=== PATIENT | male | born 1960 | race Hispanic/Latino ===

== ENCOUNTER 2024-08-18 16:04 | Inpatient (IN) | payer BC, OTHER ==
--- OUTSIDE RECORDS SUMMARY | 2024-08-18 16:06 | XMS REPORT | Continuity of Care Document ---
Author Name Unknown Address [address] [facility] [place] [address] [facility] thconnect Address [address] [facility] [address] [place] [address] Care Team Providers Care Production Illustrator Name Role Phone Amrik Monaco Attending Clinician Unavailable Payers Payer Name Policy Type Policy Number Effective Date Expirati on Date Source [place] [address] [id number] 2023 00:00:00 [facility] Problems Condition Name Condition Details Condition Category Status Onset Date Resolution Date Last Treatment Date Treating Clinician Comments Source [id number] Obesity, Class II, BMI 35-39.9 Problem [facility] Social History Social Habit Start Date Stop Date Quantity Comments Source History of Tobacco Use [facility] Sex Assigned At [facility] Smoking Status Start Date Stop Date Source Never Smoker [facility] Medications Ordered Medication Name Filled Medication Name Start Date Stop Date Current Medication? Ordering Clinician Indication Dosage Frequency Signature (SIG) Comments Components Source Famotidine 40 MG Famotidine 40 MG No 1{table t_at_be dtime} QD Famotidine 40 MG Metoprolol Succinate ER 25 MG Metoprolol Succinate ER 25 MG No 1{table t} QD Metoprolol Succinate ER 25 MG Metoclopram rashard HCl 10 MG Metoclopram rashard HCl 10 MG No 1{table t_befor e_meals } Metoclopra mide HCl 10 MG Encounters Start Date/Time End Date/Time Encounter Type Admission Type Attending [facility] Facility Care Department Encounter ID Source 2024-01-15 08:10:02 Outpatient Amrik Monaco [facility] [id number] [facility] 2023-12-18 08:00:00 Outpatient Amrik Monaco [facility] [id number] [facility] 2024-05-19 00:00:00 2024-05-19 00:00:00 (TEL) [facility] [id number] [facility]
[2024-08-18 19:17] LABS: Absolute Eosinophils 0.1 K/uL (0-0.5); Absolute Lymphocytes (CBC) 1.1 K/uL (0.7-4.9); Absolute Monocytes 1.4 K/uL (0.1-1.3); Eosinophils % 0.5 % (0-4.4); Hematocrit 52.2 % (39.6-49.0); Hemoglobin 17.1 g/dL (13.6-17.9); Lymphocytes % 7.4 % (15.3-44.8); MCH 30.3 pg (27.0-35.0); MCHC 32.7 g/dL (32.0-36.0); MCV 92.5 fL (80-100); MPV 9.6 fL (7.6-11.3); Monocytes % 8.8 % (3.3-12.3); Neutrophils % 83.3 % (41.7-73.7); Nucleated Red Blood Cells % 0.1 % (0-0); Platelets 286 thou/uL (152-406); RBC Red Blood Cell Count 5.65 M/uL (4.33-5.43); Red Cell Distribution Width 14.1 % (12.1-15.2)
[2024-08-18 19:23] LABS: Specific Gravity > 1.030 (1.005-1.030); Sqamous Epithelial <5 /HPF (None Seen); Urine Bacteria None Seen /HPF (<20); Urine Bilirubin NEGATIVE (Negative); Urine Blood 2+ (Negative); Urine Clarity Clear (Clear); Urine Color Yellow (Yellow); Urine Culture Reflex Order NOT NEEDED; Urine Glucose NEGATIVE (Negative); Urine Ketones NEGATIVE (Negative); Urine Microscopic Reflex YN ORDER UMIC; Urine Mucus Slight /HPF (None Seen); Urine Nitrite NEGATIVE (Negative); Urine Protein 1+ (Negative); Urine RBC 21-50 /HPF (None Seen); Urine Urobilinogen Normal (Normal); Urine WBC <5 /HPF (<5); Urine pH 5.5 (5.0-7.0)
[2024-08-18 19:47] LABS: Albumin 4.1 g/dL (3.4-5.0); Bilirubin Total 0.7 mg/dL (0.2-1.0); Globulin 4.2 g/dL (2.3-3.5); Protein, Total 8.3 g/dL (6.4-8.2); Troponin High Sensitivity 4.6 pg/mL (<58.9)
--- NOTE | 2024-08-18 19:50 | RAD REPORT ---
EXAMINATION: CT ABDOMEN AND PELVIS WITH CONTRAST CLINICAL INDICATION: ABD PAIN TECHNIQUE: CT abdomen and pelvis was performed, after the administration of IV contrast, [facility]. Axial, sagittal and coronal reconstructions were obtained. One or more of the following dose reduction techniques were used: Automated exposure control, adjustment of the mA and k V according to patient size, and iterative reconstruction. Unless otherwise specified, incidental findings do not require dedicated imaging follow-up. COMPARISON: No prior exam. FINDINGS: LOWER CHEST: The visualized lung bases are clear. LIVER: Normal in size and contour. No focal lesion. Gallbladder distention. SPLEEN: Normal size. No focal lesion. PANCREAS: No mass, ductal dilation, or shelli-pancreatic fluid. ADRENALS: Normal; no mass. KIDNEYS: Normal size and contour. No hydronephrosis. GASTROINTESTINAL TRACT: Prominent fluid-filled small bowel loops are present likely representing diff use ileus or developing small bowel obstruction. Mildly prominent lymph nodes noted in the small bowel mesentery towards the right. APPENDIX: Normal. LYMPH NODES: No lymphadenopathy. MUSCULOSKELETAL: No acute or suspicious osseous abnormality. ADDITIONAL FINDINGS: Mild free fluid along the right hepatic edge. Moderate to large fat-containing r ight inguinal hernia. Prostate gland mildly prominent projecting into the bladder base. IMPRESSION: Prominent fluid-filled small bowel loops likely representing diffuse ileus or developing mechanical o bstruction. Mild free fluid in the right upper quadrant. Moderate to large fat-containing right inguinal hernia.
--- NOTE | 2024-08-18 19:58 | EDPHYS ---
Physician Documentation [facility] Name: Mayur Hassan Age: 63 yrs Sex: Male : 1960 Arrival Date: 08/18/2024 Time: 16:04 Bed 28 Private MD: ED Physician Isaac Harrington HPI: 08/18 17:04 This 63 yrs old Male presents to ER via Ambulatory with complaints of sp3 Abdominal Pain. 17:04 63-year-old male with history of hypertension in the past surgical history presents to [facility] the ED referred from urgent care secondary to abdominal pain and possible surgical abdomen. Patient has had diffuse midline abdominal pain extending from the epigastric region inferiorly. Patient's been having symptoms for 2 to 3 days progressively getting worse. He denies any fever, chest pain, shortness of breath, vomiting, diarrhea, back pain, dysuria, trauma, bleeding, or any other signs or symptoms on ROS at this time. Patient does endorse mild nausea.. Historical: - Allergies: 16:53 No Known Allergies; cm10 - Home Meds: 16:53 metoprolol 50mg DAILY [Active]; cm10 - PMHx: 16:53 None; cm10 - PSHx: 16:53 None; cm10 - Immunization history:: Adult Immunizations up to date. - Infectious Disease History:: Denies. - Social history:: Smoking status: Patient denies any tobacco usage or history of. ROS: 17:08 Constitutional: Negative for fever, chills, and weight loss, Eyes: Negative for injury, sp3 pain, redness, and discharge, ENT: Negative for injury, pain, and discharge, Neck: Negative for injury, pain, and swelling, Cardiovascular: Negative for chest pain, palpitations, and edema, Respiratory: Negative for shortness of breath, cough, wheezing, and pleuritic chest pain, Back: Negative for injury and pain, MS/Extremity: Negative for injury and deformity, Skin: Negative for injury, rash, and discoloration, Neuro: Negative for headache, weakness, numbness, tingling, and seizure, Psych: Negative for depression, anxiety, suicide ideation, homicidal ideation, and hallucinations, Allergy/Immunology: Negative for hives, rash, and allergies, Endocrine: Negative for neck swelling, polydipsia, polyuria, polyphagia, and marked weight changes, Hematologic/Lymphatic: Negative for swollen nodes, abnormal bleeding, and unusual bruising, 17:08 All other systems are negative, Exam: 17:08 Constitutional: This is a well developed, well nourished patient who is awake, alert, sp3 and in no acute distress. Head/Face: Normocephalic, atraumatic. Eyes: Pupils equal round and reactive to light, extra-ocular motions intact. Lids and lashes normal. Conjunctiva and sclera are non-icteric and not injected. Cornea within normal limits. Periorbital areas with no swelling, redness, or edema. Neck: Trachea midline, no thyromegaly or masses palpated, and no cervical lymphadenopathy. Supple, full range of motion without nuchal rigidity, or vertebral point tenderness. No Meningismus. Chest/axilla: Normal chest wall appearance and motion. Nontender with no deformity. No lesions are appreciated. Cardiovascular: Regular rate and rhythm with a normal S1 and S2. No gallops, murmurs, or rubs. Normal PMI, no JVD. No pulse deficits. Respiratory: Lungs have equal breath sounds bilaterally, clear to auscultation and percussion. No rales, rhonchi or wheezes noted. No increased work of breathing, no retractions or nasal flaring. Back: No spinal tenderness. No costovertebral tenderness. Full range of motion. Skin: Warm, dry with normal turgor. Normal color with no rashes, no lesions, and no evidence of cellulitis. MS/ Extremity: Pulses equal, no cyanosis. Neurovascular intact. Full, normal range of motion. Neuro: Awake and alert, GCS 15, oriented to person, place, time, and situation. Cranial nerves II-XII grossly intact. Motor strength 5/5 in all extremities. Sensory grossly intact. Cerebellar exam normal. Normal gait. Psych: Awake, alert, with orientation to person, place and time. Behavior, mood, and affect are within normal limits. 17:08 Abdomen/GI: Patient has significant pain to palpation epigastrically extending inferiorly. No rebound or guarding noted., 19:14 ECG was reviewed by the Attending Physician. EKG demonstrates sinus tachycardia at 112 sp3 bpm with normal intervals, normal axis, poor R wave progression nonspecific diffuse ST's ST changes without evidence of acute ischemia. Vital Signs: 16:51 BP 163 / 105; Pulse 119; Resp 19; Temp 97.6; Pulse Ox 97% on R/A; Weight 107.5 kg; cm10 Height 5 ft. 7 in. ; Pain 10/10; 19:07 BP 179 / 97; Pulse 87; Resp 16; Temp 98; Pulse Ox 98% ; go2 21:38 BP 135 / 85; Pulse 78; Resp 20; Temp 97.9; Pulse Ox 98% ; go2 16:51 Body Mass Index 37.12 (107.50 kg, 170.18 cm) cm10 16:51 Pain Scale: Adult cm10 MDM: 16:10 Medical Screening Exam initiated sp3 17:09 Data reviewed: vital signs, nurses notes, lab test result(s), EKG, radiologic studies. sp3 ED course: 63-year-old male with abdominal pain. Differential diagnosis includes biliary colic, cholecystitis, biliary pathology, pancreatitis, gastritis, colitis, UTI/pyelonephritis spectrum, ureterolithiasis/kidney stone spectrum, among others. I am at highly suspicious for aortic pathology however workup will include CT scan of the abdomen pelvis with IV contrast, general labs and UA as well as symptomatic control with morphine and ondansetron IV coupled with IV fluids. Patient is tachycardic. Disposition pending workup and patient course.. 19:56 ED course: Patient on CT demonstrates mechanical obstruction versus ileus, 15,000 white sp3 count, lactate 3.3. We are hydrating with saline and empiric antibiotics with Zosyn. I discussed the case with Dr. Hager general surgery who will see the patient in the morning and repeat x-ray for the morning is been ordered. NG tube if needed. Patient is NPO. Also discussed with Dr. Rinku busby hospitalist who will be performing the admission.. 12 16:58 Order name: CBC with Diff; Complete Time: 19:21 sp3 08/18 16:58 Order name: CMP; Complete Time: 19:51 sp3 08/18 16:58 Order name: Lipase; Complete Time: 19:51 sp3 08/18 16:58 Order name: Urinalysis w/ reflexes; Complete Time: 19:51 sp3 08/18 16:58 Order name: Lactate w/ 2H reflex if indic.; Complete Time: 19:51 sp3 08/18 16:58 Order name: Troponin High Sensitivity; Complete Time: 19:51 3 08/18 19:43 Order name: Ghost Lactate-NO COLLECT Timer EDMS 08/18 20:54 Order name: Blood Culture Adult (2) sb4 08/18 23:48 Order name: Lactate Sepsis 2 HR Follow-up EDMS 08/18 23:49 Order name: T4 Free EDMS 08/18 23:49 Order name: Thyroid Stimulating Hormone EDMS 08/18 23:49 Order name: Urinalysis w/ reflexes EDMS 08/18 23:49 Order name: CBC with Automated Diff EDMS 08/18 23:49 Order name: CBC with Automated Diff EDMS 08/18 23:49 Order name: Comprehensive Metabolic Panel EDMS 08/18 23:49 Order name: Comprehensive Metabolic Panel EDMS 08/19 06:05 Order name: T4 Free EDMS 08/19 06:05 Order name: Thyroid Stimulating Hormone EDMS 08/18 16:58 Order name: CT Abd/Pelvis - IV Contrast Only; Complete Time: 19:51 3 08/18 23:49 Order name: Abdomen 1 View (KUB) EDMS 08/18 23:49 Order name: Abdomen 1 View (KUB) EDMS 08/18 16:58 Order name: EKG; Complete Time: 16:59 3 08/18 16:58 Order name: IV Saline Lock; Complete Time: 19:04 3 08/18 16:58 Order name: Labs collected and sent; Complete Time: 19:04 3 08/18 16:58 Order name: EKG - Nurse/Tech; Complete Time: 19:04 3 Administered Medications: 19:04 Drug: Ondansetron IVP 4 mg IVP once; over 2 minutes Route: IVP; Site: left antecubital; go2 19:04 Drug: morphine IVP or IV 4 mg IVP once over 4 mins Route: IVP; Infused Over: 4 mins; go2 Site: left antecubital; 19:04 Drug: NS 0.9% IV 1000 ml IV at 1 bolus Per protocol; to be given as a bolus over 60 go2 minutes Route: IV; Rate: 1 bolus; Site: left antecubital; 20:18 Drug: Piperacillin-Tazobactam IVPB 3.375 grams IVPB once over 60 mins; (mix in NS 100 go2 mL) Route: IVPB; Infused Over: 60 mins; Site: left antecubital; 22:47 Follow up: IV Status: Completed infusion go2 22:48 Follow up: IV Status: Completed infusion go2 Disposition Summary: 08/18/24 19:58 Hospitalization Ordered Notes: Hospitalization Status: Inpatient Admission sp3 Provider: Fabian Dobbs sp3 Condition: Stable sp3 Problem: new sp3 Symptoms: have worsened sp3 Bed/Room Type: Standard sp3 Location: Telemetry/MedSurg (Inpatient)(08/19/24 15:55) bd Room Assignment: 222(08/19/24 15:55) bd Diagnosis - Mechanical obstruction versus ileus, colitis, lactic acidosis sp3 Forms: - Medication Reconciliation Form sp3 - SBAR form sp3 - Leadership Thank You Letter sp3 Signatures: Dispatcher [employer] EDMS Tianna Raymundo Lacie, RN RN lg3 Isaac Harrington MD MD sp3 Emelia Hebert RN RN Nita Byers RN RN cm10 Alana Felix kmf Amanda Kam RN RN go2 Corrections: (The following items were deleted from the chart) 20:48 19:58 Telemetry/MedSurg (Inpatient) sp3 db 20:48 19:58 sp3 db 20:49 20:48 ERHOLD- db kmf 20:54 20:49 HLD4 kmf lg3 20:55 20:55 BLOOD CULTURE*+BA.LAB.BRZ ordered. EDMS EDMS 08/19 15:55 08/18 20:48 [facility] ER HOLD db bd 08/19 15:55 08/18 20:54 ERHOLD- lg3 bd
--- NOTE | 2024-08-18 19:58 | ER ---
Nurse's Notes [facility] Name: Mayur Hassan Age: 63 yrs Sex: Male : 1960 Arrival Date: 08/18/2024 Time: 16:04 Bed 28 Private MD: Diagnosis: Mechanical obstruction versus ileus, colitis, lactic acidosis Presentation: 08/18 16:51 Chief complaint: Patient states: ABDOMINAL PAIN, NAUSEA, VOMITING, AND DIARRHEA ONSET cm10 SATURDAY. PT WAS SENT TO THE ER BY PCP. Coronavirus screen: Client denies travel out of the [place] in the last 14 days. Ebola Screen: Patient denies travel to an Ebola-affected area in the 21 days before illness onset. No symptoms or risks identified at this time. Initial Sepsis Screen: Does the patient meet any 2 criteria? HR > 90 bpm. Does the patient have a suspected source of infection? No. Patient's initial sepsis screen is negative. Risk Assessment: Do you want to hurt yourself or someone else? Patient reports no desire to harm self or others. Onset of symptoms was August 18, 2024. 16:51 Method Of Arrival: Ambulatory cm10 16:51 Acuity: HAIDER 3 cm10 Triage Assessment: 16:53 General: Appears in no apparent distress. uncomfortable, Behavior is calm, cooperative. cm10 Neuro: No deficits noted. Level of Consciousness is awake, alert, obeys commands, Oriented to person, place, time, situation, Appropriate for age. Respiratory: No deficits noted. Airway is patent Respiratory effort is even, unlabored, Respiratory pattern is regular, symmetrical. Historical: - Allergies: 16:53 No Known Allergies; cm10 - Home Meds: 16:53 metoprolol 50mg DAILY [Active]; cm10 - PMHx: 16:53 None; cm10 - PSHx: 16:53 None; cm10 - Immunization history:: Adult Immunizations up to date. - Infectious Disease History:: Denies. - Social history:: Smoking status: Patient denies any tobacco usage or history of. Screenin:09 [facility] ED Fall Risk Assessment (Adult) History of falling in the last 3 months, go2 including since admission No falls in past 3 months (0 pts) Confusion or Disorientation No (0 pts) Intoxicated or Sedated No (0 pts) Impaired Gait No (0 pts) Mobility Assist Device Used No (0 pt) Altered Elimination No (0 pt) Score/Fall Risk Level 0 - 2 = Low Risk. Abuse screen: Denies threats or abuse. Nutritional screening: No deficits noted. Tuberculosis screening: No symptoms or risk factors identified. Assessment: 19:08 General: Appears uncomfortable, Behavior is calm, cooperative, Smells of Denies fever, go2 fatigue, chills. Pain: Complains of pain in abdomen Pain does not radiate. Pain currently is 10 out of 10 on a pain scale. Quality of pain is described as burning, aching. Neuro: No deficits noted. Cardiovascular: No deficits noted. Respiratory: No deficits noted. GI: Bowel sounds present X 4 quads. Abd is soft and non tender Reports upper abdominal pain, bloating, nausea. : No deficits noted. EENT: No deficits noted. Derm: No deficits noted. Musculoskeletal: No deficits noted. Vital Signs: 16:51 BP 163 / 105; Pulse 119; Resp 19; Temp 97.6; Pulse Ox 97% on R/A; Weight 107.5 kg; cm10 Height 5 ft. 7 in. ; Pain 10/10; 19:07 BP 179 / 97; Pulse 87; Resp 16; Temp 98; Pulse Ox 98% ; go2 21:38 BP 135 / 85; Pulse 78; Resp 20; Temp 97.9; Pulse Ox 98% ; go2 16:51 Body Mass Index 37.12 (107.50 kg, 170.18 cm) cm10 16:51 Pain Scale: Adult cm10 ED Course: 16:08 Patient arrived in ED. ra3 16:09 Isaac Harrington MD is Attending Physician. sp3 16:53 Triage completed. cm10 16:53 Arm band placed on right wrist. Patient placed in waiting room. cm10 18:06 Radiology exam delayed due to lab results not completed at this time. (BUN/Creatinine) nj IV insertion attempt and/or patient not having appropriate IV at this time. 18:24 Amanda Kam, RN is Primary Nurse. go2 19:04 Troponin High Sensitivity Sent. go2 19:04 Lactate w/ 2H reflex if indic. Sent. go2 19:04 CT Abd/Pelvis - IV Contrast Only Sent. go2 19:04 CBC with Diff Sent. go2 19:05 CMP Sent. go2 19:05 Lipase Sent. go2 19:05 Urinalysis w/ reflexes Sent. go2 19:09 Patient has correct armband on for positive identification. Bed in low position. Call go2 light in reach. Side rails up X2. Adult w/ patient. 19:09 Inserted saline lock: 20 gauge in left antecubital area, using aseptic technique. go2 19:17 Radiology exam delayed due to lab results not completed at this time. (BUN/Creatinine). ct 19:40 CT Abd/Pelvis - IV Contrast Only In Process Unspecified. EDMS 19:57 Fabian Dobbs MD is Hospitalizing Provider. sp3 20:57 Blood Culture Adult (2) Sent. go2 23:38 No provider procedures requiring assistance completed. Patient admitted, IV remains in jb4 place. Administered Medications: 19:04 Drug: Ondansetron IVP 4 mg IVP once; over 2 minutes Route: IVP; Site: left antecubital; go2 19:04 Drug: morphine IVP or IV 4 mg IVP once over 4 mins Route: IVP; Infused Over: 4 mins; go2 Site: left antecubital; 19:04 Drug: NS 0.9% IV 1000 ml IV at 1 bolus Per protocol; to be given as a bolus over 60 go2 minutes Route: IV; Rate: 1 bolus; Site: left antecubital; 20:18 Drug: Piperacillin-Tazobactam IVPB 3.375 grams IVPB once over 60 mins; (mix in NS 100 go2 mL) Route: IVPB; Infused Over: 60 mins; Site: left antecubital; 22:47 Follow up: IV Status: Completed infusion go2 22:48 Follow up: IV Status: Completed infusion go2 Medication: 19:10 VIS not applicable for this client. go2 Outcome: 19:58 Decision to Hospitalize by Provider. sp3 23:38 Admitted to ER Hold. Please see [facility] for further documentation. jb4 23:38 Condition: stable 23:38 Discharge instructions given to patient, Instructed on the need for admit, 08/19 17:54 Patient left the ED. db Signatures: Dispatcher [employer] EDMS Armando Ocampo RN RN jb4 Solitario Pandya Setul, MD MD sp3 Emelia Hebert RN RN Nita Byers RN RN cm10 Hayley Alexander ra3 Amanda Kam, RN RN go2
[2024-08-18] MEDS ORDERED: NA CHLORIDE 0.9% 100 ML ONE (20:09)
[2024-08-18] MEDS ORDERED: PIPERACIL/TAZO 3.375 GM VIAL IV ONE (20:09)
--- NOTE | 2024-08-18 23:39 | P.HP ---
Certification for Inpatient Patient admitted to: Inpatient With expected LOS: >2 Midnights Practitioner: I am a practitioner with admitting privileges, knowledge of patient current condition, hospital course, and medical plan of care. Services: Services provided to patient in accordance with Admission requirements found in Title 42 Section 412.3 of the Code of Federal Regulations Patient History Date of Service: 08/19/24 Reason for admission: abdominal pain History of Present Illness: 63-year-old male with history of hypertension presents to the ER from urgent care with complaints of abdominal pain. Symptoms ongoing for 3 days. Progressively getting worse. Pain described as central from lower quadrant to upper epigastric area. He denied any recent fevers or chills. reports one day history of nausea vomiting. last bm yesterday , described as "normal" In the ER patient had a CT scan of the abdomen which showed concern for mechanical obstruction versus ileus. Noted to have elevated white count as well as an elevated lactate. He was started on IV fluids as well as antibiotics. General surgery was contacted and recommended repeat x-ray in the morning and keep NPO. Allergies No Known Allergies Allergy (Unverified 05/26/17 20:21) Review of Systems 10-point ROS is otherwise unremarkable Gastrointestinal: Abdominal Pain Physical Examination - Physical Exam General: Alert, Oriented x3 Respiratory: Clear to auscultation bilaterally, Normal air movement Cardiovascular: Regular rate/rhythm, Normal S1 S2 Gastrointestinal: Hypoactive, Distended Musculoskeletal: No swelling Integumentary: No rashes - Studies Laboratory Data (last 24 hrs) 08/18/24 08/18/24 18:58 18:58 WBC 15.60 H Hgb 17.1 Hct 52.2 H Plt Count 286 Sodium 135 L Potassium 4.0 BUN 23 H Creatinine 1.10 Glucose 151 H Total Bilirubin 0.7 AST 26 ALT 33 Alkaline Phosphatase 122 H Lipase 23 Assessment and Plan - Problems (Diagnosis) (1) Abdominal pain Current Visit: Yes Status: Acute (2) Bowel obstruction Current Visit: Yes Status: Acute - Plan 63-year-old male presents with several day history of abdominal pain. Bowel obstruction versus ileus -- N.p.o. -- IV Fluids --repeat abdominal xray --flagyl --surgery consult Elevated lactate --ivf --repeat labs pending Leukocytosis --repeat labs --?stress related, place on antibiotics hyperglycemia --await home med rec --check hgb aic Hematuria --monitor dvt:SCDs - Advance Directives Does patient have a Living Will: No Does patient have a Durable POA for Healthcare: No
[2024-08-18] MEDS: NA CHLORIDE 0.9% 1,000 ML IV SCH (23:45)
[2024-08-18] MEDS ORDERED: ONDANSETRON 4 MG/2 ML VIAL IV PRN (23:46)
[2024-08-19] MEDS ORDERED: METRONIDAZOLE 500mg IVPB 500 MG/100 ML BAG IV ONE ×3 (00:26→17:02)
[2024-08-19] MEDS ORDERED: NA CHLORIDE 0.9% 1,000 ML ONE ×2 (00:26→12:12)
[2024-08-19] MEDS: METRONIDAZOLE 500mg IVPB 500 MG/100 ML BAG IV SCH (00:44)
[2024-08-19] MEDS ORDERED: KETOROLAC 30 MG/ML INJ ONE (02:50)
[2024-08-19] MEDS: KETOROLAC 30 MG/ML INJ IV PRN (03:22)
[2024-08-19 03:47] VITALS: BMI 37.0
[2024-08-19 04:15] LABS: Specific Gravity > 1.030 (1.005-1.030); Sqamous Epithelial None Seen /HPF (None Seen); Urine Bacteria None Seen /HPF (<20); Urine Bilirubin NEGATIVE (Negative); Urine Blood 2+ (Negative); Urine Clarity Clear (Clear); Urine Color Light-Yellow (Yellow); Urine Culture Reflex Order NOT NEEDED; Urine Glucose NEGATIVE (Negative); Urine Ketones NEGATIVE (Negative); Urine Microscopic Reflex YN ORDER UMIC; Urine Mucus Slight /HPF (None Seen); Urine Nitrite NEGATIVE (Negative); Urine Protein TRACE (Negative); Urine RBC 21-50 /HPF (None Seen); Urine Urobilinogen Normal (Normal); Urine WBC <5 /HPF (<5); Urine pH 5.5 (5.0-7.0)
[2024-08-19 05:48] LABS: Absolute Eosinophils 0.1 K/uL (0-0.5); Absolute Lymphocytes (CBC) 0.6 K/uL (0.7-4.9); Absolute Monocytes 0.9 K/uL (0.1-1.3); Absolute Neutrophil 5.9 K/uL (1.8-8.0); Basophils % 0.1 % (0-1.3); Eosinophils % 1.4 % (0-4.4); Hematocrit 43.9 % (39.6-49.0); Hemoglobin 14.4 g/dL (13.6-17.9); Lymphocytes % 7.4 % (15.3-44.8); MCH 30.4 pg (27.0-35.0); MCHC 32.7 g/dL (32.0-36.0); MPV 9.5 fL (7.6-11.3); Monocytes % 11.5 % (3.3-12.3); Neutrophils % 79.6 % (41.7-73.7); Platelets 233 thou/uL (152-406); RBC Red Blood Cell Count 4.72 M/uL (4.33-5.43); Red Cell Distribution Width 14.1 % (12.1-15.2)
[2024-08-19 06:04] LABS: Albumin/Globulin Ratio 0.9 (1.1-1.8); Anion Gap 5.7 mEq/L (5.0-15.0); Bilirubin Total 0.7 mg/dL (0.2-1.0); Globulin 3.5 g/dL (2.3-3.5); Potassium 3.7 mEq/L (3.5-5.1); Protein, Total 6.5 g/dL (6.4-8.2); Thyroid Stimulating Hormone 2.44 uIU/mL (0.358-3.740)
--- NOTE | 2024-08-19 07:03 | RAD REPORT ---
EXAM: AP view(s) of the abdomen Abdomen 1 View (KUB) HISTORY: sbo COMPARISON: None FINDINGS: Dilated small bowel which is fairly diffuse. Segments of small bowel in the central and left hemiabd omen measure nearly 4 cm. Limited colonic gas.. No suspicious calcifications are seen. No acute osseous abnormality. Other: n/a IMPRESSION: Dilated small bowel measuring up to 4 cm suspicious for small bowel obstruction. Comparin g across modalities, the small bowel appears to have modestly worsened distention compared with yesterday.
[2024-08-19] MEDS ORDERED: ENOXAPARIN 40 MG/0.4 ML SQ ONE (08:22)
[2024-08-19] MEDS: ENOXAPARIN 40 MG/0.4 ML SQ SCH (08:51)
--- NOTE | 2024-08-19 17:42 | P.PN ---
Subjective Date of Service: 08/19/24 Chief Complaint: abdominal pain Patient denies any abdominal pain today. He stated he had a diarrheal bowel movement after KUB this morning. He denies any nausea. No vomiting since admission. He denies any prior abdominal surgery. Physical Examination - Vital Signs Temperature: 98.2 F Blood Pressure: 124/82 Pulse: 91 Respirations: 16 Pulse Ox (%): 99 - Studies Laboratory Data (last 24 hrs) 08/18/24 08/18/24 18:58 18:58 WBC 15.60 H Hgb 17.1 Hct 52.2 H Plt Count 286 Sodium 135 L Potassium 4.0 BUN 23 H Creatinine 1.10 Glucose 151 H Total Bilirubin 0.7 AST 26 ALT 33 Alkaline Phosphatase 122 H Lipase 23 Assessment And Plan - Plan Physical examination General: Alert and oriented x3, NAD, morbidly obese. HEENT: Anicteric sclera Neck: Supple, no elevated JVD Heart: Heart sounds 1 and 2 normal, regular rhythm, normal rate, no pedal edema Lungs: Clear to auscultation bilaterally, adequate breath sounds bilaterally, no rhonchi or crackles. Abdomen: Soft, nondistended, nontender, normal bowel sounds. Extremities: No tenderness, no deformity Skin: Normal skin turgor, no rash, no nodules or ulcers. Neuro: No focal motor deficit. Normal speech. Psychiatry: Normal mood, no agitation. Assessment and plan Small bowel obstruction Leukocytosis Lactic acidosis. SIRS SIRS reactive secondary to small bowel obstruction and not sepsis. Keep n.p.o. Supportive measures with IV fluid. Repeat KUB showed worsening small bowel dilatation, however patient had a diarrhea bowel movement after the KUB. General surgery Dr. Hi consulted to evaluate. Continue IV Flagyl, add IV ciprofloxacin. Serial abdominal examination. Hyperglycemia Morbid obesity Check hemoglobin A1c Fingerstick glucose monitoring. Weight loss by diet and exercise advised. DVT prophylaxis: Lovenox Advanced directive: full code
[2024-08-19] MEDS ORDERED: MORPHINE 2 MG/ML SYR IV PRN (17:45)
[2024-08-19 18:06] VITALS: O2SAT 98
[2024-08-19] MEDS: CIPROFLOXACIN 400mg IV 400 MG/200 ML BAG IV SCH (21:53)
[2024-08-20 07:12] LABS: Absolute Eosinophils 0.2 K/uL (0-0.5); Absolute Lymphocytes (CBC) 1.5 K/uL (0.7-4.9); Absolute Monocytes 0.6 K/uL (0.1-1.3); Absolute Neutrophil 2.8 K/uL (1.8-8.0); Basophils % 0.3 % (0-1.3); Hematocrit 40.2 % (39.6-49.0); Hemoglobin 13.8 g/dL (13.6-17.9); Lymphocytes % 30.1 % (15.3-44.8); MCH 31.6 pg (27.0-35.0); MCHC 34.3 g/dL (32.0-36.0); MCV 91.9 fL (80-100); MPV 8.7 fL (7.6-11.3); Monocytes % 11.6 % (3.3-12.3); Nucleated Red Blood Cells % 0.1 % (0-0); Platelets 242 thou/uL (152-406); RBC Red Blood Cell Count 4.37 M/uL (4.33-5.43); Red Cell Distribution Width 13.7 % (12.1-15.2)
[2024-08-20 07:20] LABS: Anion Gap 5.7 mEq/L (5.0-15.0); Potassium 3.7 mEq/L (3.5-5.1)
--- NOTE | 2024-08-20 10:24 | RAD REPORT ---
EXAM: XR Abdomen 1 View (KUB) HISTORY: [facility] sbo COMPARISON: CT abdomen and pelvis 08/18/2024 abdomen x-ray 08/19/2024 FINDINGS: Single view of the abdomen shows a nonspecific, bowel gas pattern with some improvement of the degree of small bowel dilation. No suspicious calcifications are seen. The bones are unremarkable. Included lung bases are unremarkable. IMPRESSION: Improvement of small bowel dilation since the prior radiograph
--- NOTE | 2024-08-20 13:09 | P.PN ---
Subjective Date of Service: 08/20/24 Chief Complaint: abdominal pain Patient denies any abdominal pain. He states he is passing flatus and had a bowel movement this morning. He denies any nausea. No vomiting since admission. . Physical Examination - Vital Signs Temperature: 97.7 F Blood Pressure: 162/77 Pulse: 78 Respirations: 16 Pulse Ox (%): 95 Assessment And Plan - Plan Physical examination General: Alert and oriented x3, NAD, morbidly obese. HEENT: Anicteric sclera Heart: Heart sounds 1 and 2 normal, regular rhythm, normal rate, no pedal edema Lungs: Clear to auscultation bilaterally, adequate breath sounds bilaterally, no rhonchi or crackles. Abdomen: Obese abdomen, soft, nondistended, nontender, normal bowel sounds. Extremities: No tenderness, no deformity Skin: Normal skin turgor, no rash, no nodules or ulcers. Neuro: No focal motor deficit. Normal speech. Psychiatry: Normal mood, no agitation. Assessment and plan Small bowel obstruction Leukocytosis Lactic acidosis. SIRS SIRS reactive secondary to small bowel obstruction and not sepsis. Leukocytosis resolved. Repeat KUB shows significant improvement in bowel dilatation. General surgery Dr. Hi input appreciated. Supportive measures with IV fluid. Diet resumption per Dr. Hi. Continue IV Flagyl and IV ciprofloxacin. Serial abdominal examination. Hyperglycemia Morbid obesity Fingerstick glucose monitoring. Weight loss by diet and exercise advised. DVT prophylaxis: Lovenox Advanced directive: full code
--- NOTE | 2024-08-21 15:54 | EKG ---
Test Date: 2024-08-18 Test Time: 18:56:00 Crutching Contractor: NATHAN MEASUREMENT RESULTS: Intervals: Rate: 112 AL: 122 QRSD: 94 QT: 324 QTc: 442 Bradford: P: 59 AL: 122 QRS: 91 T: 12 INTERPRETIVE STATEMENTS: Sinus tachycardia Right atrial enlargement Nonspecific ST abnormality Abnormal ECG Compared to ECG 05/26/2017 18:16:30 Atrial abnormality now present Sinus rhythm no longer present Possible ischemia no longer present ST (T wave) deviation still present Electronically Signed On 08-21-24 15:50:23 DESIGN CHIEF by Robert Paz
[2024-08-21 16:28] VITALS: BP 156/79; TEMP 98.1
--- NOTE | 2024-08-21 16:56 | P.DS ---
Admission Date: 08/18/24 Discharge Date: 08/21/24 Disposition: ROUTINE DISCHARGE Discharge Condition: FAIR Reason for Admission: abdominal pain Brief History of Present Illness: 63-year-old male with history of hypertension presents to the ER from urgent care with complaints of abdominal pain, symptoms ongoing for 3 days associated with nausea vomiting. last bm day before admission. In the ER patient had a CT scan of the abdomen showed mechanical obstruction versus ileus. Noted to have elevated white count as well as an elevated lactate. He was started on IV fluids as well as antibiotics and admitted for further management. Hospital Course: Small bowel obstruction Leukocytosis Lactic acidosis. SIRS SIRS reactive secondary to small bowel obstruction and not sepsis. Leukocytosis resolved rapidly, within 24 hours. Repeat KUB shows significant improvement in bowel dilatation. General surgery Dr. Hi evaluated. Patient treated with IV fluid, later started on full liquid diet after KUB showed improvement in the bowel dilatation. Patient became asymptomatic, he tolerated regular diet He was treated empirically with IV Flagyl and IV ciprofloxacin. Patient abdomen is benign, had bowel movement this morning, passing flatus. Patient deemed stable for discharge per Dr. Hi. Patient to follow-up with Dr. Hi within 1 week. He is also advised to establish care with gastroenterology for colonoscopy. Hyperglycemia Morbid obesity Hemoglobin A1c 5.7. Weight loss by diet and exercise advised. Vital Signs/Physical Exam: Temp Pulse Resp BP Pulse Ox 98.1 F 62 14 156/79 H 95 08/21/24 16:00 08/21/24 16:00 08/21/24 16:00 08/21/24 16:00 08/21/24 16:00 General: Alert, In no apparent distress, Oriented x3 HEENT: Mucous membr. moist/pink Neck: Supple, JVD not distended Respiratory: Clear to auscultation bilaterally, Normal air movement Cardiovascular: No edema, Regular rate/rhythm, Normal S1 S2 Gastrointestinal: Soft and benign, Non-distended, No tenderness Musculoskeletal: No swelling, No tenderness, Other (Obese abdomen) Integumentary: No rashes, No cyanosis Neurological: Normal strength at 5/5 x4 extr, Cranial nerves 3-12 intact Laboratory Data at Discharge: WBC 5.20 thou/uL (4.3-10.9) 08/20/24 06:44 Hgb 13.8 g/dL (13.6-17.9) 08/20/24 06:44 Hct 40.2 % (39.6-49.0) 08/20/24 06:44 Plt Count 242 thou/uL (152-406) 08/20/24 06:44 Sodium 139 mEq/L (136-145) 08/20/24 06:44 Potassium 3.7 mEq/L (3.5-5.1) 08/20/24 06:44 BUN 13 mg/dL (7-18) 08/20/24 06:44 Creatinine 0.66 mg/dL (0.70-1.30) L 08/20/24 06:44 Glucose 97 mg/dL (74-106) 08/20/24 06:44 Total Bilirubin 0.7 mg/dL (0.2-1.0) 08/19/24 05:04 AST 20 U/L (15-37) 08/19/24 05:04 ALT 26 U/L (16-61) 08/19/24 05:04 Alkaline Phosphatase 88 U/L (45-117) D 08/19/24 05:04 Lipase 23 U/L (13-75) 08/18/24 18:58 Home Medications: Metoprolol Succinate [Toprol Xl*] 50 mg PO DAILY 08/19/24 Ciprofloxacin HCl [Cipro 500 MG Tablet] 500 mg PO BID #14 tab 08/21/24 metroNIDAZOLE [Flagyl] 500 mg PO Q8H #21 tab 08/21/24 New Medications: Ciprofloxacin HCl [Cipro 500 MG Tablet] 500 mg PO BID #14 tab metroNIDAZOLE [Flagyl] 500 mg PO Q8H #21 tab Followup: Rl Hi MD [ACTIVE - CAN ADMIT] - 1 Week (Next week) ABLERT LONDONO [Primary Care Provider] - 1-2 Weeks Time spent managing pt's care (in minutes): 34
== END 2024-08-21 18:14 | disposition home or self-care (01) | DRG 389 ==
LOC: ER 16:04 → ERHOLD 23:45 → 2ND 08-19 16:49
PROVIDERS: ADMIT Internal Medicine; ATTEND Internal Medicine
DX: K56.609 Unspecified intestinal obstruction, unspecified as to partial versus complete obstruction (principal); E87.20 Acidosis, unspecified; R65.10 Systemic inflammatory response syndrome (SIRS) of non-infectious origin without acute organ dysfunction; I10 Essential (primary) hypertension; K52.9 Noninfective gastroenteritis and colitis, unspecified; E66.01 Morbid (severe) obesity due to excess calories; R73.9 Hyperglycemia, unspecified; R31.9 Hematuria, unspecified; Z68.37 Body mass index [BMI] 37.0-37.9, adult; Z79.899 Other long term (current) drug therapy
CPT/HCPCS: 36415; 74018; 74177; 80048; 80053; 81001; 83036; 83605; 83690; 84439; 84443; 84484; 85025; 87040; 93005; 96365; 96366; 96375; 99285; J0744; J1650; J2543; J7030; Q9967

== ENCOUNTER 2024-11-01 07:14 | Emergency (ER) | payer BC, OTHER ==
[2024-11-01] MEDS ORDERED: ATROPINE SULF 1 MG/10 ML SYR IV ONE (07:15)
[2024-11-01] MEDS ORDERED: NA CHLORIDE 0.9% 1,000 ML IV ONE (07:15)
[2024-11-01] MEDS ORDERED: Calcium Chloride 10% INJ SYR IV ONE (07:15)
[2024-11-01] MEDS ORDERED: EPINEPHrine 1 MG/10 ML SYR IV ONE ×2 (07:15)
--- OUTSIDE RECORDS SUMMARY | 2024-11-01 07:17 | XMS REPORT | Continuity of Care Document ---
Author Name Unknown Address [address] 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 Name Role Phone Amrik Monaco Attending Clinician Unavailable Payers Payer Name Policy Type Policy Number Effective Date Expirati on Date Source [place] [address] [id number] 2023 00:00:00 [facility] Problems Condition Name Condition Details Condition Category Status Onset Date Resolution Date Last Treatment Date Treating Clinician Comments Source [id number] Primary osteoarthr itis of right knee Problem [facility] [id number] Primary osteoarthr itis of left knee Problem [facility] [id number] Obesity, Class II, BMI 35-39.9 Problem [facility] Social History Social Habit Start Date Stop Date Quantity Comments Source History of Tobacco Use [facility] Sex Assigned At [facility] Smoking Status Start Date Stop Date Source Former Smoker 2024-09-10 00:00:00 2024-09-10 00:00:00 [facility] Never Smoker [facility] Medications Ordered Medication Name Filled Medication Name Start Date Stop Date Current Medication? Ordering Clinician Indication Dosage Frequency Signature (SIG) Comments Components Source BUPivacaine HCl BUPivacaine HCl 09-10 00:00: 00 No 4mL [facility] Kenalog (Triamcinol one) Kenalog (Triamcinol one) 09-10 00:00: 00 No 1mL [facility] Famotidine 40 MG Famotidine 40 MG No 1{table t_at_be dtime} QD Famotidine 40 MG Metoprolol Succinate ER 25 MG Metoprolol Succinate ER 25 MG No 1{table t} QD Metoprolol Succinate ER 25 MG Omeprazole 20 MG Omeprazole 20 MG No QD Omeprazole 20 MG Vital Signs Vital Name Observation Time Observation Value Comments S ource height 2024-09-10 08:00:00 65.0 [in_i] [facility] on [facility] weight 2024-09-10 08:00:00 223 [lb_av] [facility] on [facility] temperature 2024-09-10 08:00:00 97.8 [degF] Com mon [facility] bmi 2024-09-10 08:00:00 37.11 kg/m2 [facility] blood pressure systolic 2024-09-10 08:00:00 142 mm[Hg] [facility] blood pressure diastolic 2024-09-10 08:00:00 86 mm[Hg] [facility] Encounters Start Date/Time End Date/Time Encounter Type Admission Type Attending Clinicians Care Facility Care Department Encounter ID Source 2024-09-10 07:12:00 Outpatient Amrik Monaco [facility] [id number] [facility] 2024-08-19 11:47:00 Outpatient Amrik Monaco [facility] [id number] [facility] 2024-01-15 08:10:02 Outpatient Amrik Monaco [facility] [id number] [facility] 2023-12-18 08:00:00 Outpatient Amrik Monaco [facility] [id number] [facility] 2024-09-10 00:00:00 2024-09-10 00:00:00 (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
[2024-11-01] MEDS ORDERED: MIDAZOLAM HCL 0 ML ONE (07:24)
[2024-11-01] MEDS ORDERED: NA CHLORIDE 0.9% 1,000 ML ONE (07:41)
[2024-11-01] MEDS ORDERED: MIDAZOLAM HCL IN 0.9 % NACL/PF 100 MG/100 ML BAG IVPB ONE (07:42)
[2024-11-01] MEDS ORDERED: NOREPINEPHRINE BITARTRATE/D5W 4 MG/250 ML BAG IV ONE (07:43)
[2024-11-01 07:55] LABS: Absolute Eosinophils 0.1 K/uL (0-0.5); Absolute Lymphocytes (CBC) 0.7 K/uL (0.7-4.9); Absolute Neutrophil 7.6 K/uL (1.8-8.0); Basophils % 0.2 % (0-1.3); Eosinophils % 0.6 % (0-4.4); Hematocrit 61.5 % (39.6-49.0); Hemoglobin 19.4 g/dL (13.6-17.9); Lymphocytes % 7.3 % (15.3-44.8); MCH 30.2 pg (27.0-35.0); MCHC 31.5 g/dL (32.0-36.0); MCV 95.9 fL (80-100); Monocytes % 10.4 % (3.3-12.3); Neutrophils % 81.5 % (41.7-73.7); Nucleated Red Blood Cells % 0.2 % (0-0); Platelets 282 thou/uL (152-406); RBC Red Blood Cell Count 6.42 M/uL (4.33-5.43); Red Cell Distribution Width 15.1 % (12.1-15.2)
[2024-11-01] MEDS ORDERED: METOPROLOL TARTRATE 5 MG/5 ML INJ IV ONE (08:02)
[2024-11-01 08:14] LABS: Albumin 3.9 g/dL (3.4-5.0); Albumin/Globulin Ratio 0.9 (1.1-1.8); Anion Gap 22.7 mEq/L (5.0-15.0); Bilirubin Direct 0.3 mg/dL (0-0.2); Bilirubin Indirect, Calculated 0.6 mg/dL (0.2-0.8); Bilirubin Total 0.9 mg/dL (0.2-1.0); Globulin 4.4 g/dL (2.3-3.5); Magnesium 2.5 mg/dL (1.6-2.4); Potassium 2.7 mEq/L (3.5-5.1); Protein, Total 8.3 g/dL (6.4-8.2)
[2024-11-01 08:15] LABS: Troponin High Sensitivity 525.1 pg/mL (<58.9)
--- NOTE | 2024-11-01 08:44 | RAD REPORT ---
Procedure: Chest Single View HISTORY: Cough COMPARISON: 2017 FINDINGS: Artifact overlies the chest. The most recent film demonstrates an endotracheal tube with its tip 1 cm above the joss. Nasogastri c tube in stomach. The lungs appear clear of acute infiltrate. No significant pleural effusion noted. The heart is normal size.
[2024-11-01] MEDS ORDERED: D5W 1,000 ML with NA BICARB 8.4% 150 MEQ IV SCH (09:00)
--- NOTE | 2024-11-01 09:23 | RAD REPORT ---
EXAMINATION: CT HEAD WITHOUT CONTRAST CT CERVICAL SPINE WITHOUT CONTRAST CLINICAL INDICATION: Head and neck pain. TECHNIQUE: Axial CT images from the skull base to the vertex without intravenous contrast. Axial CT i mages through the cervical spine were obtained without intravenous contrast. Sagittal and coronal reformatted images were created from the data set. Coronal and sagittal reformatted images were creat ed from the data set. One or more of the following dose reduction techniques were used: Automated exposure control, adjustment of the mA and/or kV according to patient size, and/or iterative reconstr uction. Unless otherwise specified, incidental findings do not require dedicated imaging follow-up. [id number]. Comparison: none FINDINGS: An intracranial bleed is not seen. Pituitary gland 11 mm. Ventricles are normal in caliber. No significant hypodensity within the brain No extra-axial fluid collection. No fluid within the sinuses/mastoids No fracture or dislocation is seen involving the cervical spine.. Mild to moderate spondylosis IMPRESSION: No acute intracranial abnormality noted cervical spine A cervical fracture is not seen. If the patient continues to have symptoms to suggest acute MASSOTHERAPIST/spinal pathology then MRI would be rec ommended
[2024-11-01] MEDS ORDERED: IPRATROPIUM BROM 0.5MG/2.5ML ONE (09:27)
[2024-11-01] MEDS ORDERED: METHYLPREDNISOLONE 125 MG INJ ONE (09:27)
[2024-11-01] MEDS ORDERED: LEVALBUTEROL 1.25 MG/3 ML NEB ONE (09:27)
[2024-11-01] MEDS ORDERED: HYDROCORTISONE SUC 100 MG INJ ONE (09:28)
[2024-11-01] MEDS ORDERED: FAMOTIDINE 20 MG/2 ML VIAL IV ONE (09:28)
[2024-11-01] MEDS ORDERED: NA CHLORIDE 0.9% 100 ML ONE (09:28)
[2024-11-01] MEDS ORDERED: PIPERACIL/TAZO 3.375 GM VIAL IV ONE (09:28)
[2024-11-01] MEDS ORDERED: KCL 20 MEQ/100 mL IVPB 200 ML IV ONE (09:28)
[2024-11-01 09:31] LABS: PT Prothrombin Time 13.8 SECONDS (10.0-13.0); Protime INR 1.22
--- NOTE | 2024-11-01 09:33 | RAD REPORT ---
EXAM: CT CHEST, ABDOMEN AND PELVIS WITHOUT CONTRAST CLINICAL INDICATION: Chest and abdominal pain. CPR TECHNIQUE: CT chest, abdomen and pelvis was performed, without IV contrast, as per department protoco l. Axial, sagittal and coronal reconstructions were obtained. One or more of the following dose reduction techniques were used: Automated exposure control, adjustment of the mA and/or kV according to the patient size, and/or iterative reconstruction. Unless otherwise specified, incidental findings do not require dedicated imaging follow-up. The lack of IV and oral contrast limits evaluation of the mediastinum, hollie, vessels, organs and aleksandr l. COMPARISON: 2023 CT abdomen FINDINGS: Endotracheal tube with its tip 1 cm above the joss. Nasogastric tube within the stomach. Lungs are clear. No mediastinal or hilar lymphadenopathy seen. No pleural effusion. No pericardial effusion. Liver, spleen, pancreas, adrenals kidneys and bladder appear grossly normal. Thacker catheter has been placed into the bladder. Mild gallbladder distention. No wall thickening seen.. No stranding within the adjacent fat. Small amount of ascites. Mild to moderate dilatation of jejunum and portion of ileum. A loop of ileum abuts the proximal aspect of a moderate right inguinal hernia. Small amount of surrounding fluid present. Small portion of bladder extends into the hernia.. No free air. There is no evidence of diverticulitis Small left inguinal hernia IMPRESSION: Small bowel obstruction. Loop of ileum abuts the proximal aspect of a moderate right inguinal hernia so this may be the cause of the obstruction. Small portion of bladder extends into the right inguinal hernia. Mild gallbladder distention Mild enlargement of the pituitary gland may indicate a microadenoma. Nonemergent MRI pituitary gland recommended
--- NOTE | 2024-11-01 09:37 | RAD REPORT ---
EXAM: Right upper quadrant ultrasound. CLINICAL HISTORY: Abdominal pain COMPARISON: CT November 01, 2024 FINDINGS: Mild gallbladder distention. A gallstone is not seen. Gallbladder wall not thickened. Biliary tree normal caliber IMPRESSION: Mild gallbladder distention
--- NOTE | 2024-11-01 09:51 | EDPHYS ---
Physician Documentation [facility] Name: Mayur Hassan Age: 64 yrs Sex: Male : 1960 Arrival Date: 11/01/2024 Time: 07:14 Bed 4 Private MD: ED Physician Dionte You HPI: 11/01 09:34 This 64 yrs old Male presents to ER via EMS with complaints of Respiratory prashant Distress. 09:34 The patient has shortness of breath at rest. Onset: The symptoms/episode began/occurred prashant yesterday. Duration: The symptoms are continuous, and are markedly worse than the original presentation. The patient's shortness of breath has no apparent modifying factors. The patient presents with abdominal pain in the upper abdomen. abd pain yesterday, progressive sob, ems to er , decompensated, intubated, cpr, fluids , pressors. Severity of symptoms: At their worst the symptoms were incapacitating this morning, in the emergency department the symptoms are worse markedly. Modifying factors: The symptoms are alleviated by nothing, the symptoms are aggravated by nothing. Historical: - Allergies: 09:23 No Known Allergies; jl7 - Immunization history:: Adult Immunizations unknown. - Infectious Disease History:: Denies. - Family history:: not pertinent. - Social history:: Smoking status: Patient denies any tobacco usage or history of. ROS: 09:34 Constitutional: Positive for prashant 09:34 Respiratory: Positive for shortness of breath, at rest. 09:34 Abdomen/GI: Positive for abdominal distension, 09:34 MS/extremity: Positive for mottled skin, 09:34 Neuro: Positive for altered mental status, weakness, confused, Exam: 09:34 Constitutional: The patient appears in obvious distress, severely distressed, prashant 09:34 Cardiovascular: Rate: tachycardic, actual rate is 115 bpm, Rhythm: regular, Pulses: Pulses are 2+ in bilateral radial, brachial, femoral, popliteal, posterior tibial and and dorsalis pedis arteries.. Heart sounds: normal, Edema: is not appreciated, JVD: is not appreciated, 09:34 ECG was reviewed by the Attending Physician. 09:42 Skin: Appearance: Color: anjelica, mottled, Temperature: cool, Moisture: normal moisture, prashant petechiae, not noted, 09:54 ECG was reviewed by the Attending Physician. prashant 11:28 Musculoskeletal/extremity: Circulation is intact in all extremities. Compartment prashant Syndrome exam of affected extremity: is normal. DVT Exam: No signs of deep vein thrombosis. no pain, no swelling, no tenderness, negative Homans' sign noted on exam, no appreciated bluish discoloration, no erythema, Vital Signs: 07:19 BP 137 / 103; Pulse 112; Resp 29; Pulse Ox 62% on Non rebreather; ty 07:40 BP 116 / 97; Pulse 148; Resp 18; Pulse Ox 78% on Non rebreather; ty 07:47 BP 64 / 42; Pulse 57; Resp 16; ty 08:00 BP 139 / 86; Pulse 144; Resp 22; Pulse Ox 73% ; jl7 08:12 BP 76 / 50; Pulse 125; Resp 16; Pulse Ox 100% on ETT vent; jl7 08:19 Weight 102.06 kg; ld1 08:20 BP 117 / 65; Pulse 136; Resp 16; Pulse Ox 100% ; jl7 08:30 BP 139 / 78; Pulse 141; Resp 16; Pulse Ox 100% ; jl7 08:45 BP 121 / 71; Pulse 143; Resp 16; Pulse Ox 100% ; jl7 09:06 BP 95 / 56; Pulse 134; Resp 16; Pulse Ox 100% on ETT vent; FiO2 100 %; jl7 09:15 BP 102 / 65; Pulse 136; Resp 16; Pulse Ox 100% ; jl7 09:49 BP 108 / 68; Pulse 137; Resp 16; Pulse Ox 100% on ETT vent; ld1 10:18 BP 104 / 49; Pulse 135; Resp 18; Pulse Ox 100% on ETT vent; ld1 10:39 BP 104 / 64; Pulse 135; Pulse Ox 100% on ETT vent; ld1 Procedures: 09:42 Intubation: Ventilated with 100% NRB prior to procedure. O2 saturation prior to prashant procedure was 90 %. Intubated orally using # 4 Frank blade with 7.5 mm ETT. was successful on first attempt. Ventilated with Ambu bag. Cricoid pressure applied during procedure. Tube secured at right side of mouth measured 23 cm at lip. Placement verified by CXR, CO2 detector with (+) color change, auscultating bilateral breath sounds, O2 saturation after procedure was 100 %. Patient tolerated well. Central Line: the site was prepped with Betadine, in sterile fashion, a triple lumen catheter was inserted, in the right femoral vein, in 1 attempts. placement was verified, by blood return, the site was dressed with using sterile technique, the patient tolerated the procedure, well. Performed ng tube placed, large volume removed , 700 cc initally. MDM: 07:20 Medical Screening Exam initiated prashant 07:23 Medical Screening Exam initiated prashant 09:45 Differential diagnosis: Anemia CHF exacerbation, Chronic Obstructive Pulmonary Disease prashant Myocardial Infarction pneumonia, Psychogenic pulmonary edema, Pulmonary Embolism reactive airway disease, Sepsis Unstable Angina appendicitis, bowel obstruction, coronary artery disease, cholecystitis, Cholelithiasis, diverticulitis, gastritis, Hepatitis, Irritable bowel syndrome, Mesenteric ischemia or infarction, non-specific abd pain, pancreatitis, Peptic Ulcer Disease, Peritonitis, Prostatitis, Pyelonephritis, Ureterolithiasis. Antibiotic administration: zosyn. Differential Diagnosis altered mental status, sepsis, flu. Immunization status: Pneumococcal vaccine: within last 5 years. Influenza vaccine: within last 5 years. Data reviewed: vital signs, nurses notes, EMS record, lab test result(s), EKG, radiologic studies, CT scan, plain films, ultrasound. Consideration of Admission/Observation Escalation of care including admission/observation considered. I considered the following discharge prescriptions or medication management in the emergency department Medications were administered in the Emergency Department. See MAR. Independent interpretation of the following test(s) in the Emergency Department EKG: See my EKG interpretation above. Test considered but Not performed: MRI: no mri brain. Historians other than the Patient: EMS: ems well informed. Care significantly affected by the following chronic conditions: Hypertension, Obesity, bowel obstruction. Post IV fluid administration reassessment for Sepsis: Client not prescribed the 30 mL/kg IVF due to: Sepsis focused reassessment complete. Counseling: I had a detailed discussion with the patient and/or guardian regarding the historical points, exam findings, and any diagnostic results supporting the discharge/admit diagnosis, lab results, radiology results, the need to transfer to another facility, for higher level of care, [facility] does not immediately have the required specialist. 11/01 07:23 Order name: Basic Metabolic Panel; Complete Time: 09:11 [facility] 11/01 07:23 Order name: CBC with Diff; Complete Time: 09:11 [facility] 11/01 07:23 Order name: LFT's; Complete Time: 09:11 [facility] 11/01 07:23 Order name: Magnesium; Complete Time: 09:11 [facility] 11/01 07:23 Order name: NT PRO-BNP; Complete Time: 09:11 [facility] 11/01 07:23 Order name: PT-INR; Complete Time: 09:32 [facility] 11/01 07:23 Order name: Troponin HS; Complete Time: 09:11 [facility] 11/01 07:23 Order name: Blood Culture Adult (2) [facility] 11/01 07:23 Order name: Lipase; Complete Time: 09:11 [facility] 11/01 07:23 Order name: ABG [facility] 11/01 07:23 Order name: Lactate w/ 2H reflex if indic. [facility] 11/01 07:54 Order name: Glucose, Ancillary Testing; Complete Time: 09:11 [facility] 11/01 09:52 Order name: Ghost Lactate-NO COLLECT Timer [facility] 11/01 07:23 Order name: XRAY Chest (1 view); Complete Time: 09:11 [facility] 11/01 08:42 Order name: US Abdomen Limited [facility] 11/01 09:08 Order name: Chest Abd Pelvis Wo Con [facility] 11/01 09:09 Order name: Head C Spine Mpr Wo Con; Complete Time: 09:32 [facility] 11/01 07:23 Order name: Cardiac monitoring; Complete Time: 08:33 [facility] 11/01 07:23 Order name: EKG - Nurse/Tech; Complete Time: 08:33 [facility] 11/01 07:23 Order name: IV Saline Lock; Complete Time: 08:33 [facility] 11/01 07:23 Order name: Labs collected and sent; Complete Time: 08:33 [facility] 11/01 07:23 Order name: O2 Per Protocol; Complete Time: 08:33 [facility] 11/01 07:23 Order name: O2 Sat Monitoring; Complete Time: 08:33 [facility] 11/01 07:23 Order name: Thacker; Complete Time: 08:33 [facility] 11/01 08:15 Order name: Central Line Kit; Complete Time: 08:48 [facility] 11/01 10:43 Order name: Misc. Order: VENT 16, AC, 100%, 480 CC, PEEP 6; Complete Time: 11:40 prashant EC:34 Rate is 81 beats/min. Rhythm is regular. QRS Ferris is Normal. MI interval is normal. QRS prashant interval is normal. QT interval is normal. No Q waves. T waves are Normal. No ST changes noted. Clinical impression: NSR w/ Non-specific ST/T Changes and No evidence of ischemia. Interpreted by me. Reviewed by me. 09:54 Rate is 130 beats/min. Rhythm is regular. QRS Ferris is Normal. MI interval is normal. prashant QRS interval is normal. QT interval is normal. No Q waves. T waves are Normal. No ST changes noted. Clinical impression: Sinus tachycardia. Interpreted by me. Reviewed by me. Administered Medications: 07:26 Drug: Etomidate 10 mg IVP once Route: IVP; Site: right antecubital; ld1 07:45 Follow up: Response: No adverse reaction ld1 07:26 Drug: Succinylcholine 100 mg IVP once Route: IVP; Site: right antecubital; ld1 07:45 Follow up: Response: No adverse reaction ld1 07:30 Drug: Rocuronium IVP once Route: IVP; Site: right antecubital; ld1 07:45 Follow up: Response: No adverse reaction ld1 07:47 Drug: NS 0.9% IV (30 ml/kg) 30 ml/kg IV at bolus once; Sepsis Protocol; to be given as ld1 a bolus over 90 minutes Route: IV; Rate: bolus; Site: right antecubital; 09:57 Follow up: Response: No adverse reaction; IV Status: Completed infusion; IV Intake: ld1 3000ml 07:47 Drug: Norepinephrine IV 0.1 mcg/kg/min IV at calculated rate See Administration ld1 Instructions; (Standard concentration 4 mg / 250 mL D5W); Recommended max rate 3 mcg/kg/min; Titrate 0.05 mcg/kg/min as often as every 5 minutes to achieve goal (see titration policy); Goal parameter MAP greater than 65 mmHg. Route: IV; Rate: calculated rate; Site: right antecubital; 07:47 Follow up: Rate change 5 mcg/kg/min; IV Status: Infusion continued ld1 08:35 Follow up: Rate change 10 mcg/kg/min; IV Status: Infusion continued ld1 11:00 Follow up: IV Status: Infusion continued upon transfer kb3 07:47 Drug: Midazolam (Versed) Drip 0.01 mg/kg/h IV See Administration Instructions; ld1 (Standard concentration: 100 mg / 100 mL NS); Recommended max rate 0.1 mg/kg/hr; Titrate 0.01 mg/kg/hr as often as every 30 minutes to achieve goal (see titration policy); Goal parameter RASS 0 to -2 Route: IV; Rate: 5 mg/hr; Site: right antecubital; 11:30 Follow up: IV Status: Infusion continued upon transfer kb3 07:49 Drug: Atropine 1 mg IVP once Route: IVP; Site: right antecubital; ld1 08:15 Follow up: Response: No adverse reaction ld1 07:49 Drug: Calcium Chloride 1 grams IVP once Route: IVP; Site: left femoral; ld1 08:15 Follow up: Response: No adverse reaction ld1 07:50 Drug: Sodium Bicarbonate 1 amp IVP once; (50 mL); equals 50 mEq Route: IVP; Site: left ld1 femoral; 08:15 Follow up: Response: No adverse reaction ld1 07:50 Drug: EPINEPHrine 0.1mg/mL 1:10,000 1 mg IVP once Route: IVP; Site: left femoral; ld1 08:15 Follow up: Response: No adverse reaction ld1 07:52 Drug: EPINEPHrine 0.1mg/mL 1:10,000 1 mg IVP once Route: IVP; Site: left forearm; ld1 08:15 Follow up: Response: No adverse reaction ld1 07:53 Drug: Sodium Bicarbonate 1 amp IVP once; (50 mL); equals 50 mEq Route: IVP; Site: left ld1 femoral; 08:15 Follow up: Response: No adverse reaction ld1 07:54 Drug: EPINEPHrine 0.1mg/mL 1:10,000 1 mg IVP once Route: IVP; Site: left femoral; ld1 08:15 Follow up: Response: No adverse reaction ld1 07:56 Drug: EPINEPHrine 0.1mg/mL 1:10,000 1 mg IVP once Route: IVP; Site: left femoral; ld1 08:15 Follow up: Response: No adverse reaction ld1 08:03 Drug: Metoprolol 5 mg IVP once; Hold for SBP <100 or HR <60. Route: IVP; Site: left ld1 femoral; 08:15 Follow up: Response: No adverse reaction ld1 08:34 Drug: Sodium Bicarbonate IVP 1 amp IVP once; (50 mL); equals 50 mEq Route: IVP; Site: ld1 right femoral; 08:45 Follow up: Response: No adverse reaction ld1 08:34 Drug: Sodium Bicarbonate IVP 1 amp IVP once; (50 mL); equals 50 mEq Route: IVP; Site: ld1 right femoral; 08:50 Follow up: Response: No adverse reaction ld1 09:00 Drug: Levalbuterol Inhalation 3.75 mg Inhalation once Route: Inhalation; ld1 09:57 Follow up: Response: No adverse reaction ld1 09:00 Drug: Ipratropium Inhalation Aerosol 0.5 mg Inhalation once Route: Inhalation; ld1 09:57 Follow up: Response: No adverse reaction ld1 09:16 Drug: D5W IV 1000 ml, Sodium Bicarbonate IVP 150 mEq IV at 125 ml/hr continuous Route: ld1 IV; Rate: 125 ml/hr; Site: right femoral; 11:00 Follow up: IV Status: Infusion continued upon transfer kb3 09:47 Drug: Famotidine IVP 20 mg IVP once; dilute with 10 mL 0.9% NaCl; give over 2 minutes ld1 Route: IVP; Site: left antecubital; 09:56 Follow up: Response: No adverse reaction ld1 09:47 Drug: MethylPrednisoLONE IVP 125 mg IVP once Route: IVP; Site: left antecubital; ld1 09:57 Follow up: Response: No adverse reaction ld1 09:47 Drug: Piperacillin-Tazobactam IVPB 3.375 grams IVPB once over 60 mins; (mix in NS 100 ld1 mL) Route: IVPB; Infused Over: 60 mins; Site: left antecubital; 10:18 Follow up: Response: No adverse reaction; IV Status: Completed infusion; IV Intake: ld1 100ml 09:47 Drug: Potassium Chloride IV 20 mEq IV at per protocol once; administer over 1-2 hours ld1 Route: IV; Rate: per protocol; Site: right femoral; 11:00 Follow up: IV Status: Completed infusion kb3 09:48 Drug: Solu-CORTEF IVP 100 mg IVP once Route: IVP; Site: left antecubital; ld1 10:00 Follow up: Response: No adverse reaction ld1 09:52 Drug: Potassium Chloride IV 20 mEq IV at per protocol once; administer over 1-2 hours ld1 Route: IV; Rate: per protocol; Site: right femoral; 11:00 Follow up: IV Status: Completed infusion kb3 Disposition: 11:29 Critical Care:. prashant Disposition Summary: 11/01/24 09:51 Transfer Ordered Notes: Transfer Location: [facility] prashnat Reason: Higher level of care prashant Condition: Serious prashant Problem: new prashant Symptoms: have improved prashant Accepting Physician: to icu [facility](11/01/24 11:42) ld1 Diagnosis - Other intestinal obstruction - small bowel prashant - Acute respiratory failure with hypoxia prashant - Acute respiratory failure with hypercapnia prashant - Acute kidney failure, unspecified prashant - Severe sepsis with septic shock prashant - Hypokalemia prashant - Non ST elevation OR prashant - Hyperglycemia, unspecified prashant - Other specified abdominal hernia with obstruction, without gangrene - right inguinalcha Forms: - Medication Reconciliation Form prashant - SBAR form prashant Critical care time excluding procedures: 11:29 Critical care time: Bedside Care: 45 minutes, Consultation: 20 minutes, Family prashant Intervention: 15 minutes. Total time: 80 minutes Signatures: Dispatcher [employer] EDMS Dionte You MD MD cha Leal, Jahala, RN RN jl7 Chiqui Chang RN RN ld1 Sarita Kim RN kb3 Corrections: (The following items were deleted from the chart) 07:23 07:23 BASIC METABOLIC PANEL+C.LAB.BRZ ordered. EDMS EDMS 07:23 07:23 CBC+H.LAB.BRZ ordered. EDMS EDMS 07:23 07:23 HEPATIC FUNCTION+C.LAB.BRZ ordered. EDMS EDMS 07:23 07:23 MAGNESIUM+C.LAB.BRZ ordered. EDMS EDMS 07:23 07:23 PROBNP+C.LAB.BRZ ordered. EDMS EDMS 07:23 07:23 PROTIME (+INR)+COAG.LAB.BRZ ordered. EDMS EDMS 07:23 07:23 Troponin High Sensitivity+C.LAB.BRZ ordered. EDMS EDMS 07:23 07:23 Urinalysis+U.LAB.BRZ ordered. EDMS EDMS 07:23 07:23 BLOOD CULTURE*+BA.LAB.BRZ ordered. EDMS EDMS 07:23 07:23 LIPASE+C.LAB.BRZ ordered. EDMS EDMS 07:23 07:23 LACTATE+C.LAB.BRZ ordered. EDMS EDMS 07:24 07:23 Chest Single View+RAD.RAD.BRZ ordered. EDMS EDMS 07:24 07:24 BiPap ([employer] Only)+RC.RAD.BRZ ordered. EDMS EDMS 07:24 07:24 Arterial Blood Gas+RC.LAB.BRZ ordered. EDMS EDMS 09:07 08:07 Head C Spine Cap Wo Con+CT.RAD.BRZ ordered. EDMS EDMS 11:42 09:51 to icu [facility] ld1
--- NOTE | 2024-11-01 09:51 | ER ---
Nurse's Notes [facility] Name: Mayur Hassan Age: 64 yrs Sex: Male : 1960 Arrival Date: 11/01/2024 Time: 07:14 Bed 4 Private MD: Diagnosis: Other intestinal obstruction-small bowel;Acute respiratory failure with hypoxia;Acute respiratory failure with hypercapnia;Acute kidney failure, unspecified;Severe sepsis with septic shock;Hypokalemia;Non ST elevation [place];Hyperglycemia, unspecified;Other specified abdominal hernia with obstruction, without gangrene-right inguinal Presentation: 11/01 07:15 Chief complaint: EMS states: Toned out for abdominal pain, clutching abdomen on arrival jl7 to scene. Pt with mottling noted from bilateral arms, abdomen and bilateral lower extremities noted on arrival to ER, difficulty breathing on non-rebreather. 07:19 Method Of Arrival: EMS: [facility] ld1 07:19 Care prior to arrival: None. Compressions began at 07:49. ld1 07:19 Acuity: HAIDER 1 ld1 07:19 Coronavirus screen: At this time, the client does not indicate any symptoms associated jl7 with coronavirus-19. Ebola Screen: No symptoms or risks identified at this time. Initial Sepsis Screen: Does the patient meet any 2 criteria? RR > 20 per min. HR > 90 bpm. Yes Does the patient have a suspected source of infection? No. Patient's initial sepsis screen is negative. Risk Assessment: Do you want to hurt yourself or someone else? Unable to obtain. Onset of symptoms is unknown. Triage Assessment: 07:15 General: Appears distressed, Behavior is unresponsive. jl7 Historical: - Allergies: 09:23 No Known Allergies; jl7 - Immunization history:: Adult Immunizations unknown. - Infectious Disease History:: Denies. - Family history:: not pertinent. - Social history:: Smoking status: Patient denies any tobacco usage or history of. Screenin:00 Abuse screen: Denies threats or abuse. Denies injuries from another. Nutritional ld1 screening: No deficits noted. Tuberculosis screening: No symptoms or risk factors identified. 08:30 [facility] ED Fall Risk Assessment (Adult) History of falling in the last 3 months, ld1 including since admission No falls in past 3 months (0 pts) Confusion or Disorientation Yes (5 pts) Intoxicated or Sedated Yes (3 pts) Impaired Gait Yes (1 pt) Mobility Assist Device Used No (0 pt) Altered Elimination Yes (1 pt) Score/Fall Risk Level 3 or more points = High Risk Oriented to surroundings, Maintained a safe environment, Educated pt \T\ family on fall prevention, incl call for assistance when getting out of bed, Assessed \T\ reinforced patient's understanding of fall precautions, Hourly rounding (assess needs \T\ fall precautionary measures) done. Assessment: 07:31 CPR assessment: intubated. ld1 07:31 Cardiac rhythm is SVT. General: Behavior is unresponsive. Neuro: Level of Consciousness ld1 is unresponsive. Cardiovascular: Rhythm is SVT. Respiratory: Airway via oral intubation. GI: Abdomen is round distended. Derm: Skin is dusky, Skin temperature is cool. 07:49 CPR assessment: unresponsive. Cardiac rhythm is asystole. ld1 07:51 Cardiac rhythm is asystole. ld1 07:53 Cardiac rhythm is asystole. ld1 07:55 CPR assessment: unresponsive. Cardiac rhythm is asystole. ld1 07:58 CPR assessment: unresponsive, intubated. Cardiac rhythm is Shock delivered. ld1 07:58 CPR assessment: unresponsive, pupils fixed \T\ dilated. ld1 08:00 CPR assessment: unresponsive, intubated. Cardiac rhythm is Synchronized shock delivered ld1 at 100. 08:55 Reassessment: Pt to CT. ld1 09:13 Reassessment: Pt placed back in room. Family at bedside. ld1 09:19 General: Appears in no apparent distress. Behavior is unresponsive. Pain: Unable to use ld1 pain scale. Patient is unresponsive. Neuro: [place] Agitation-Sedation Scale (RASS): -4 Deep sedation. Cardiovascular: Rhythm is sinus tachycardia. Respiratory: Airway via oral intubation. GI: Abdomen is round distended. Vital Signs: 07:19 BP 137 / 103; Pulse 112; Resp 29; Pulse Ox 62% on Non rebreather; ty 07:40 BP 116 / 97; Pulse 148; Resp 18; Pulse Ox 78% on Non rebreather; ty 07:47 BP 64 / 42; Pulse 57; Resp 16; ty 08:00 BP 139 / 86; Pulse 144; Resp 22; Pulse Ox 73% ; jl7 08:12 BP 76 / 50; Pulse 125; Resp 16; Pulse Ox 100% on ETT vent; jl7 08:19 Weight 102.06 kg; ld1 08:20 BP 117 / 65; Pulse 136; Resp 16; Pulse Ox 100% ; jl7 08:30 BP 139 / 78; Pulse 141; Resp 16; Pulse Ox 100% ; jl7 08:45 BP 121 / 71; Pulse 143; Resp 16; Pulse Ox 100% ; jl7 09:06 BP 95 / 56; Pulse 134; Resp 16; Pulse Ox 100% on ETT vent; FiO2 100 %; jl7 09:15 BP 102 / 65; Pulse 136; Resp 16; Pulse Ox 100% ; jl7 09:49 BP 108 / 68; Pulse 137; Resp 16; Pulse Ox 100% on ETT vent; ld1 10:18 BP 104 / 49; Pulse 135; Resp 18; Pulse Ox 100% on ETT vent; ld1 10:39 BP 104 / 64; Pulse 135; Pulse Ox 100% on ETT vent; ld1 ED Course: 07:14 Inserted saline lock: 20 gauge in left antecubital area, using aseptic technique. Blood ty collected. Flushed with 10 mL NS. 07:14 Initial lab(s) drawn, by ED staff, sent to lab. First set of blood cultures drawn by ED ty staff. 07:19 Patient arrived in ED. prashant 07:20 Dionte You MD is Attending Physician. prashant 07:30 EKG done, by ED staff, reviewed by Dionte You MD. ty 07:31 Patient has correct armband on for positive identification. Bed in low position. Call ld1 light in reach. Side rails up X2. Intubation: 7.5 Fr. ETT placed orally. Performed by Dionte You MD Successful on first attempt. Placement verified by CO2 detector w/ + color change, auscultating bilateral breath sounds, Ventilated with ventilator. 07:31 Assisted provider with intubation using 7.5 mm ETT via oral route. Intubated by Dionte You MD Placement verified by CO2 detector w/ + color change, auscultating bilateral breath sounds, Patient tolerated well. 07:32 Thacker cath inserted, using sterile technique, 16 Fr., returned no urine return at this ld1 time. Patient tolerated well. 07:32 NGT: inserted 14 Fr. via right nare. verified return of gastric contents, to ld1 intermittent suction. Returned gastric contents. Patient tolerated well. 07:44 Ethan Henry, RN is Primary Nurse. jl7 07:47 Assisted provider with central line placement. Set up central line tray. Triple lumen ld1 line placed in right femoral. Line placed by Dionte You MD Placement verified by blood return, Dressed with Tegaderm, Blood was collected. Patient tolerated well. 07:58 Defibrillated with 100 joules. ld1 07:59 EKG done, by ED staff, reviewed by Dionte You MD. ty 08:00 Arm band placed on right wrist. ld1 08:00 One-on-one care X 60 minutes. kb3 08:08 Chiqui Chang, ADALID is Primary Nurse. ld1 08:09 Triage completed. ld1 08:40 XRAY Chest (1 view) In Process Unspecified. EDMS 09:13 Chest Abd Pelvis Wo Con In Process Unspecified. EDMS 09:13 Head C Spine Mpr Wo Con In Process Unspecified. EDMS 09:[address] You with Felix Newman from the [facility] Transfer Center.eb 09:32 US Abdomen Limited In Process Unspecified. EDMS 09:[address] You with the [facility] transfer center. eb 09:[address] Garcia the produce wrapper swine nutritionist for [facility] with Dr. You for patient eb transfer consultation. 10:01 called [facility] to check if they are available to fly/ due to weather they eb are unable to help us out. 10:02 per Felix from the transfer center they do have a bed for our patient but he can't eb assign it until it's cleaned. 10:52 administrative approval given by Felix Newman/ patient has been accepted to [facility] eb [facility] [place] room 7304/ Dr. Claire Garcia has accepted the patient in transfer/ report to be called to [phone]. 11:42 Patient transferred, IV remains in place. ld1 Administered Medications: 07:26 Drug: Etomidate 10 mg IVP once Route: IVP; Site: right antecubital; ld1 07:45 Follow up: Response: No adverse reaction ld1 07:26 Drug: Succinylcholine 100 mg IVP once Route: IVP; Site: right antecubital; ld1 07:45 Follow up: Response: No adverse reaction ld1 07:30 Drug: Rocuronium IVP once Route: IVP; Site: right antecubital; ld1 07:45 Follow up: Response: No adverse reaction ld1 07:47 Drug: NS 0.9% IV (30 ml/kg) 30 ml/kg IV at bolus once; Sepsis Protocol; to be given as ld1 a bolus over 90 minutes Route: IV; Rate: bolus; Site: right antecubital; 09:57 Follow up: Response: No adverse reaction; IV Status: Completed infusion; IV Intake: ld1 3000ml 07:47 Drug: Norepinephrine IV 0.1 mcg/kg/min IV at calculated rate See Administration ld1 Instructions; (Standard concentration 4 mg / 250 mL D5W); Recommended max rate 3 mcg/kg/min; Titrate 0.05 mcg/kg/min as often as every 5 minutes to achieve goal (see titration policy); Goal parameter MAP greater than 65 mmHg. Route: IV; Rate: calculated rate; Site: right antecubital; 07:47 Follow up: Rate change 5 mcg/kg/min; IV Status: Infusion continued ld1 08:35 Follow up: Rate change 10 mcg/kg/min; IV Status: Infusion continued ld1 11:00 Follow up: IV Status: Infusion continued upon transfer kb3 07:47 Drug: Midazolam (Versed) Drip 0.01 mg/kg/h IV See Administration Instructions; ld1 (Standard concentration: 100 mg / 100 mL NS); Recommended max rate 0.1 mg/kg/hr; Titrate 0.01 mg/kg/hr as often as every 30 minutes to achieve goal (see titration policy); Goal parameter RASS 0 to -2 Route: IV; Rate: 5 mg/hr; Site: right antecubital; 11:30 Follow up: IV Status: Infusion continued upon transfer kb3 07:49 Drug: Atropine 1 mg IVP once Route: IVP; Site: right antecubital; ld1 08:15 Follow up: Response: No adverse reaction ld1 07:49 Drug: Calcium Chloride 1 grams IVP once Route: IVP; Site: left femoral; ld1 08:15 Follow up: Response: No adverse reaction ld1 07:50 Drug: Sodium Bicarbonate 1 amp IVP once; (50 mL); equals 50 mEq Route: IVP; Site: left ld1 femoral; 08:15 Follow up: Response: No adverse reaction ld1 07:50 Drug: EPINEPHrine 0.1mg/mL 1:10,000 1 mg IVP once Route: IVP; Site: left femoral; ld1 08:15 Follow up: Response: No adverse reaction ld1 07:52 Drug: EPINEPHrine 0.1mg/mL 1:10,000 1 mg IVP once Route: IVP; Site: left forearm; ld1 08:15 Follow up: Response: No adverse reaction ld1 07:53 Drug: Sodium Bicarbonate 1 amp IVP once; (50 mL); equals 50 mEq Route: IVP; Site: left ld1 femoral; 08:15 Follow up: Response: No adverse reaction ld1 07:54 Drug: EPINEPHrine 0.1mg/mL 1:10,000 1 mg IVP once Route: IVP; Site: left femoral; ld1 08:15 Follow up: Response: No adverse reaction ld1 07:56 Drug: EPINEPHrine 0.1mg/mL 1:10,000 1 mg IVP once Route: IVP; Site: left femoral; ld1 08:15 Follow up: Response: No adverse reaction ld1 08:03 Drug: Metoprolol 5 mg IVP once; Hold for SBP <100 or HR <60. Route: IVP; Site: left ld1 femoral; 08:15 Follow up: Response: No adverse reaction ld1 08:34 Drug: Sodium Bicarbonate IVP 1 amp IVP once; (50 mL); equals 50 mEq Route: IVP; Site: ld1 right femoral; 08:45 Follow up: Response: No adverse reaction ld1 08:34 Drug: Sodium Bicarbonate IVP 1 amp IVP once; (50 mL); equals 50 mEq Route: IVP; Site: ld1 right femoral; 08:50 Follow up: Response: No adverse reaction ld1 09:00 Drug: Levalbuterol Inhalation 3.75 mg Inhalation once Route: Inhalation; ld1 09:57 Follow up: Response: No adverse reaction ld1 09:00 Drug: Ipratropium Inhalation Aerosol 0.5 mg Inhalation once Route: Inhalation; ld1 09:57 Follow up: Response: No adverse reaction ld1 09:16 Drug: D5W IV 1000 ml, Sodium Bicarbonate IVP 150 mEq IV at 125 ml/hr continuous Route: ld1 IV; Rate: 125 ml/hr; Site: right femoral; 11:00 Follow up: IV Status: Infusion continued upon transfer kb3 09:47 Drug: Famotidine IVP 20 mg IVP once; dilute with 10 mL 0.9% NaCl; give over 2 minutes ld1 Route: IVP; Site: left antecubital; 09:56 Follow up: Response: No adverse reaction ld1 09:47 Drug: MethylPrednisoLONE IVP 125 mg IVP once Route: IVP; Site: left antecubital; ld1 09:57 Follow up: Response: No adverse reaction ld1 09:47 Drug: Piperacillin-Tazobactam IVPB 3.375 grams IVPB once over 60 mins; (mix in NS 100 ld1 mL) Route: IVPB; Infused Over: 60 mins; Site: left antecubital; 10:18 Follow up: Response: No adverse reaction; IV Status: Completed infusion; IV Intake: ld1 100ml 09:47 Drug: Potassium Chloride IV 20 mEq IV at per protocol once; administer over 1-2 hours ld1 Route: IV; Rate: per protocol; Site: right femoral; 11:00 Follow up: IV Status: Completed infusion kb3 09:48 Drug: Solu-CORTEF IVP 100 mg IVP once Route: IVP; Site: left antecubital; ld1 10:00 Follow up: Response: No adverse reaction ld1 09:52 Drug: Potassium Chloride IV 20 mEq IV at per protocol once; administer over 1-2 hours ld1 Route: IV; Rate: per protocol; Site: right femoral; 11:00 Follow up: IV Status: Completed infusion kb3 Medication: 11:42 VIS not applicable for this client. ld1 Intake: 09:57 IV: 3000ml; Total: 3000ml. ld1 10:18 IV: 100ml; Total: 3100ml. ld1 Outcome: 09:51 ER care complete, transfer ordered by MD. cerda 11:00 Transferred by ground EMS to [facility], ld1 11:00 Condition: stable 11:00 Instructed on the need for transfer, 11:42 Patient left the ED. ld1 Signatures: Dispatcher [employer] EDMS Dionte You MD MD cha Leal, Jahala, RN RN jl7 Ana David Lauren RN RN ld1 Sarita Kim RN RN kb3 Tenzin Eller Corrections: (The following items were deleted from the chart) 08: 07:24 Method Of Arrival: EMS: [facility] ld1 ld1 08:23 08:22 Rocuronium IVP 75 mg IVP in right antecubital ld1 ld1
[2024-11-01 10:17] LABS: Blood Gas Oxyhemoglobin 90.8 % (94-97); Blood Gas THB 16.7 g/dl (12-18); Blood O2 Saturation 92.4 % (92-98.5)
[2024-11-01 11:54] VITALS: O2SAT 100
[2024-11-01 12:07] VITALS: BP 104/64
[2024-11-01] MEDS ORDERED: ROCURONIUM 50 MG/5 ML VIAL IV ONE (15:07)
[2024-11-01] MEDS ORDERED: ETOMIDATE 20 MG/10 ML VIAL IV ONE (15:07)
[2024-11-01] MEDS ORDERED: SUCCINYLCHOLINE 20 MG/ML (10 ML) IV ONE (15:07)
--- NOTE | 2024-11-02 12:00 | EKG ---
Test Date: 2024-11-01 Test Time: 07:22:08 Field Cane Scale Clerk: Juan MACHUCA MEASUREMENT RESULTS: Intervals: Rate: 81 AL: 130 QRSD: 96 QT: 344 QTc: 399 [place]: P: 54 AL: 130 QRS: 99 T: 20 INTERPRETIVE STATEMENTS: Sinus rhythm with premature atrial complexes Rightward axis Nonspecific ST abnormality Abnormal ECG Compared to ECG 08/18/2024 18:56:00 Atrial premature complex(es) now present Right-axis deviation now present Sinus tachycardia no longer present Atrial abnormality no longer present ST (T wave) deviation still present Electronically Signed On 11-02-24 11:58:15 MARKETING AGENT by Robert Paz
--- NOTE | 2024-11-02 12:00 | EKG ---
Test Date: 2024-11-01 Test Time: 08:05:01 Air Dispatcher: Juan MACHUCA MEASUREMENT RESULTS: Intervals: Rate: 130 NC: 150 QRSD: 92 QT: 308 QTc: 453 [place]: P: 76 NC: 150 QRS: 89 T: 64 INTERPRETIVE STATEMENTS: Sinus tachycardia Right atrial enlargement Borderline ECG Compared to ECG 11/01/2024 07:22:08 Atrial abnormality now present Sinus rhythm no longer present Atrial premature complex(es) no longer present Right-axis deviation no longer present ST (T wave) deviation no longer present Electronically Signed On 11-02-24 11:58:13 EMPLOYMENT ADVISOR by Robert Paz
== END 2024-11-01 11:42 | disposition short-term general hospital (02) ==
LOC: ER 07:14
DX: J96.01 Acute respiratory failure with hypoxia (principal); J96.02 Acute respiratory failure with hypercapnia; R65.21 Severe sepsis with septic shock; N17.9 Acute kidney failure, unspecified; I21.4 Non-ST elevation (NSTEMI) myocardial infarction; K56.609 Unspecified intestinal obstruction, unspecified as to partial versus complete obstruction; K45.0 Other specified abdominal hernia with obstruction, without gangrene; E87.6 Hypokalemia; E16.2 Hypoglycemia, unspecified
CPT/HCPCS: 92960; 93005 ×2; 87040 ×2; 85025; 80048; 36415; 83735; 85610; 82947; 80076; 83605; 84484; 83690; 83880; 70450; 71250; 72125; 74176; 71045; 76705; 82805; 31500; 51702; 92950 ×2; 99291; 99292; 36556 ×2; 36600; 94660; J3480; J2250; J7614; J0461; J2543; J7644; J0171 ×2; J2919; J1720; J7060; J7030 ×2; J2704